=== PATIENT | female | born 1995 | race Caucasian/White ===

== ENCOUNTER 2016-10-02 08:02 | Emergency (ER) | payer MEDICAID ==
[~2016-10-02] VITALS: Ht 175.3 cm; Wt 98.0 kg
[2016-10-02 08:15] VITALS: BP 165/47
== END 2016-10-02 10:14 | disposition home or self-care (01) ==
LOC: ED 08:02
DX: S93.402A Sprain of unspecified ligament of left ankle, initial encounter (principal); W01.0XXA Fall on same level from slipping, tripping and stumbling without subsequent striking against object, initial encounter; Y93.89 Activity, other specified; Y99.8 Other external cause status; Y92.89 Other specified places as the place of occurrence of the external cause
CPT/HCPCS: 90715; J1885; Q0092